=== PATIENT | female | born 1940 ===

== ENCOUNTER 2017-05-18 16:20 | Emergency (ER) | payer MEDICARE ==
[2017-05-18 16:39] VITALS: BP 161/107; PULSE 87; RESP 20; TEMP 98.2; O2SAT 99
--- NOTE | 2017-05-18 17:38 | ED PDOC ---
HPI: Skin/Bite Injury Time Seen by Provider: 05/18/17 16:36 Chief Complaint (Nursing): Abnormal Skin Integrity Chief Complaint (Provider): Rash on legs and arms - Reports similar in the past History Per: Patient History/Exam Limitations: no limitations Onset/Duration Of Symptoms: Days (3) Current Symptoms Are (Timing): Still Present Quality Of Symptoms: Itching Severity: Mild Additional Complaint(s): PT reports similar in the past and was gien hydrocortisone cream which helped. No new food, lotions, shampoo, etc. Past Medical History Reviewed: Historical Data, Nursing Documentation, Vital Signs Vital Signs: Last Vital Signs Temp 98.2 F 05/18/17 16:37 Pulse 87 05/18/17 16:37 Resp 20 05/18/17 16:37 BP 161/107 H 05/18/17 16:37 Pulse Ox 99 05/18/17 16:37 - Medical History PMH: HTN - Surgical History Surgical History: No Surg Hx - Family History Family History: States: Unknown Family Hx - Living Arrangements Living Arrangements: With Family - Social History Current smoker - smoking cessation education provided: No Alcohol: None Drugs: Denies - Home Medications Home Medications: Ambulatory Orders Medication Instructions Recorded Hydrocortisone Lotion 2.5% 1 ml TOP BID #1 applic 05/18/17 - Allergies Allergies/Adverse Reactions: Allergies Allergy/AdvReac Type Severity Reaction Status Date / Time No Known Allergies Allergy Verified 12/28/15 20:13 Review of Systems ROS Statement: Except As Marked, All Systems Reviewed And Found Negative Constitutional: Negative for: Fever, Chills Skin: Positive for: Rash Physical Exam - Reviewed Nursing Documentation Reviewed: Yes Vital Signs Reviewed: Yes - Physical Exam Appears: Positive for: Well, Non-toxic, No Acute Distress Head Exam: Positive for: ATRAUMATIC, NORMAL INSPECTION, NORMOCEPHALIC Skin: Positive for: Warm, Rash (Dry erythematous rash on the arms and lower legs /ankles (+) blanching ). Negative for: Normal Color Eye Exam: Positive for: Normal appearance ENT: Positive for: Normal ENT Inspection Neck: Positive for: Normal, Painless ROM Respiratory: Negative for: Accessory Muscle Use, Respiratory Distress Back: Positive for: Normal Inspection Extremity: Positive for: Normal ROM Neurologic/Psych: Positive for: Alert, Oriented - ECG O2 Sat by Pulse Oximetry: 99 Disposition - Clinical Impression Clinical Impression: Dermatitis - Patient ED Disposition Is Patient to be Admitted: No Counseled Patient/Family Regarding: Diagnosis, Need For Followup, Rx Given - Disposition Disposition: Routine/Home Disposition Time: 17:38 Condition: GOOD Prescriptions: Hydrocortisone Lotion 2.5% 1 ml TOP BID #1 applic Instructions: Dermatitis (ED)
== END 2017-05-18 17:53 | disposition home or self-care (01) ==
LOC: H.ER 16:20
DX: L30.9 Dermatitis, unspecified (principal); I10 Essential (primary) hypertension

== ENCOUNTER 2017-06-19 08:45 | Observation (INO) | payer MEDICARE ==
[2017-06-19 08:54] VITALS: RESP 16; BMI 22.4
--- NOTE | 2017-06-19 10:37 | ED PDOC ---
HPI: Female Pain Time Seen by Provider: 06/19/17 09:10 Chief Complaint (Nursing): Female Genitourinary Chief Complaint (Provider): Dysuria History Per: Patient History/Exam Limitations: no limitations Onset/Duration Of Symptoms: Days Current Symptoms Are (Timing): Still Present Quality Of Discomfort: Burning Associated Symptoms: denies: Fever, Nausea, Vomiting Additional Complaint(s): Wendy Velazquez is a 77 year old female who presents to the ED for evaluation of dysuria for the 2 days. She denies hematuria, fevers, nausea, vomiting, or abdominal pain. She has no medical problems and no surgical history. Past Medical History Reviewed: Historical Data, Nursing Documentation, Vital Signs Vital Signs: Last Vital Signs Temp 98.2 F 06/19/17 08:53 Pulse 78 06/19/17 08:53 Resp 16 06/19/17 08:53 BP 180/103 H 06/19/17 08:53 Pulse Ox 95 06/19/17 08:53 - Medical History PMH: HTN - Family History Family History: States: Unknown Family Hx - Home Medications Home Medications: Ambulatory Orders Medication Instructions Recorded Hydrocortisone Lotion 2.5% 1 ml TOP BID #1 applic 05/18/17 Nitrofurantoin Macrocrystals 100 mg PO BID #14 cap 06/19/17 [Macrobid] Phenazopyridine [Pyridium] 200 mg PO TID PRN #6 tab 06/19/17 - Allergies Allergies/Adverse Reactions: Allergies Allergy/AdvReac Type Severity Reaction Status Date / Time No Known Allergies Allergy Verified 12/28/15 20:13 Review of Systems Constitutional: Negative for: Fever Gastrointestinal: Negative for: Nausea, Vomiting, Abdominal Pain Genitourinary Female: Positive for: Dysuria. Negative for: Hematuria Physical Exam - Physical Exam Appears: Positive for: Non-toxic, No Acute Distress Head Exam: Positive for: ATRAUMATIC, NORMOCEPHALIC Skin: Positive for: Normal Color, Warm, Dry Eye Exam: Positive for: EOMI, Normal appearance, PERRL Neck: Positive for: Normal, Painless ROM, Supple Cardiovascular/Chest: Positive for: Regular Rate, Rhythm. Negative for: Murmur Respiratory: Positive for: Normal Breath Sounds. Negative for: Respiratory Distress Gastrointestinal/Abdominal: Positive for: Soft, Tenderness (Suprapubic tenderness). Negative for: Guarding, Rebound Back: Positive for: Normal Inspection. Negative for: L CVA Tenderness, R CVA Tenderness, Other (midline tenderness) Extremity: Positive for: Normal ROM. Negative for: Pedal Edema, Deformity Neurologic/Psych: Positive for: Alert, Oriented. Negative for: Motor/Sensory Deficits - ECG O2 Sat by Pulse Oximetry: 95 Medical Decision Making Medical Decision Making: Impression: UTI Plan: Urine dip Urine culture UA Scribe Attestation: Documented by Guido Acuna, acting as a scribe for Emily Duarte MD. Provider Scribe Attestation: All medical record entries made by the Scribe were at my direction and personally dictated by me. I have reviewed the chart and agree that the record accurately reflects my personal performance of the history, physical exam, medical decision making, and the department course for this patient. I have also personally directed, reviewed, and agree with the discharge instructions and disposition. ED OBSERVATION - Progress Note Progress Note: 06/19/17 12:00 Placed on Obs because of extensive time of workup. 06/19/17 13:30 No changes. Patient resting comfortably. Vitals stable. 06/19/17 14:15 Pelvic/Transvaginal US: IMPRESSION: Heterogeneous uterus without evidence of discrete mass. Trace fluid seen in the endometrial cavity. the endometrium thickness is 2 mm. The ovaries were not visualized in the this exam. No overt mass lesion at the adnexa noted in this study. Disposition - Clinical Impression Clinical Impression: Urinary tract infection - Disposition Condition: STABLE
[2017-06-19 11:05] LABS: URINE BILIRUBIN NEGATIVE (NEGATIVE); URINE BLOOD NEGATIVE (NEGATIVE); URINE COLOR YELLOW (YELLOW); URINE GLUCOSE (UA) NEG (Normal); URINE KETONE NEGATIVE (NEGATIVE); URINE LEUKOCYTE ESTERASE TRACE Leu/uL (Negative); URINE PROTEIN NEGATIVE (NEGATIVE); URINE UROBILINOGEN 0.2-1.0 mg/dL (0.2-1.0); WBC URINE 2 /hpf (0-5)
--- NOTE | 2017-06-19 14:09 | US ---
HISTORY: Suprapubic pain COMPARISON: None available. TECHNIQUE: Transabdominal and endovaginal ultrasound examination of the pelvis was performed. FINDINGS: UTERUS: Measures 5.2 x 1.8 x 3.2 cm. The uterus is heterogeneous without evidence of discrete mass or fibroid. Small calcifications seen at the uterus measures 2 x 4 millimeter may represent calcified fibroid No fibroid or other mass lesion seen. ENDOMETRIUM: Measures 2 mm in diameter. Trace amount of fluid in the endometrial cavity. CERVIX: No cervical abnormality identified. RIGHT OVARY: The right ovary was not visualized. LEFT OVARY: The left ovary was not visualized. FREE FLUID: No significant free fluid noted. OTHER FINDINGS: None. IMPRESSION: Heterogeneous uterus without evidence of discrete mass. Trace fluid seen in the endometrial cavity. The endometrium thickness is 2 millimeter The ovaries were not visualized in this exam. No overt mass lesion at the adnexa noted in this study.
[2017-06-19 14:32] VITALS: BP 168/82; PULSE 71; TEMP 97.1; O2SAT 96
== END 2017-06-19 14:32 | disposition home or self-care (01) ==
LOC: H.ER 08:45 → H.EROBSV 12:00
PROVIDERS: ADMIT Emergency Medicine; ATTEND Emergency Medicine
DX: N39.0 Urinary tract infection, site not specified (principal); I10 Essential (primary) hypertension
CPT/HCPCS: 76830; 76856; 81003; 87086; 99283; G0378